=== PATIENT | female | born 1965 | race Caucasian/White ===

== ENCOUNTER 2017-11-23 09:10 | Day surgery (SDC) | END 2017-11-23 12:57 | disposition home or self-care (01) ==

== ENCOUNTER 2019-07-31 16:46 | Day surgery (SDC) | payer OTHER ==
[~2019-07-31] VITALS: Ht 170.2 cm; Wt 73.5 kg
[~2019-07-31 16:46] MED LIST: ATOR10TA65 PO; DOCUSATE PO; LYR75 PO; OMEP20TA42 PO; RANI300T PO; SIMVASTATIN PO; ZOLP5TAB7 PO
[2019-07-31 17:13] VITALS: Ht 170.2 cm; Wt 73.5 kg
[2019-07-31 17:29] VITALS: BP 128/78; PULSE 63; RESP 18
[2019-07-31] MEDS ORDERED: LACTATED RINGER'S 1,000 ML IV SCH (18:00)
[2019-07-31] MEDS ORDERED: BUPIVACAINE 0.5% (SDV) 30 ML INJ ONE (18:29)
[2019-07-31] MEDS ORDERED: LIDOCAINE 1% (MPF) 30 ML INJ ONE (18:29)
[2019-07-31] MEDS ORDERED: DEXAMETHASONE 4 MG/ML 1 ML INJ ONE (18:29)
[2019-07-31] MEDS ORDERED: FENTAnyl 50 MCG/ML VIAL ONE (18:47)
[2019-07-31] MEDS ORDERED: LIDOCAINE 2% (SDV) 5 ML INJ ONE (18:47)
[2019-07-31] MEDS ORDERED: PROPOFOL 100 ML ONE (18:47)
[2019-07-31] MEDS ORDERED: KETOROLAC 30 MG INJ ONE (19:11)
[2019-07-31] MEDS ORDERED: CEFAZOLIN 1 GM INJ ONE (19:14)
[2019-07-31] MEDS ORDERED: MEPERIDINE 25 MG INJ IV PRN (19:30)
[2019-07-31] MEDS ORDERED: HYDROmorphONE 1 MG/5 ML IV SYRINGE IV PRN ×3 (19:30)
[2019-07-31] MEDS ORDERED: METOCLOPRAMIDE 10 MG INJ IV PRN (19:30)
[2019-07-31] MEDS ORDERED: ALBUTEROL 0.083% (NEB) 2.5 MG/3 ML AMP HHN PRN (19:30)
[2019-07-31] MEDS ORDERED: hydrALAzine 20 MG INJ IV PRN (19:30)
[2019-07-31] MEDS ORDERED: KETOROLAC 30 MG INJ IV PRN (19:30)
[2019-07-31] MEDS ORDERED: FENTAnyl 50 MCG/ML VIAL IV PRN ×3 (19:30)
[2019-07-31] MEDS ORDERED: ONDANSETRON 4 MG INJ IV PRN (19:30)
[2019-07-31] MEDS ORDERED: DIPHENHYDRAMINE 50 MG INJ IV PRN (19:30)
[2019-07-31] MEDS ORDERED: LABETALOL HCL 20MG INJ IV PRN (19:30)
[2019-07-31] MEDS ORDERED: EPHEDrine 25 MG/5 ML SYG IV PRN (19:30)
== END 2019-07-31 20:40 | disposition home or self-care (01) ==
LOC: SDS 16:46
PROVIDERS: ATTEND Podiatrist Primary Podiatric Medicine
DX: M20.42 Other hammer toe(s) (acquired), left foot (principal); L84 Corns and callosities
CPT/HCPCS: 28285; 84703; J0690; J1885; J3010; L3260; J1100